=== PATIENT | male | born 1950 | race Caucasian/White ===

== ENCOUNTER 2017-04-15 18:08 | Emergency (ER) | payer OTHER ==
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
--- NOTE | ~2017-04-15 | CR126 ---
[facility]. [facility] A Service of [facility] RADIOLOGY TEXT RESULTS PATIENT: SARAH ZAACRIAS JR LOCATION: SED : 50 UNIT #: [id number] AGE: [address]: MYRA LEON SEX: M ORDER DR: [id number] [address] [address] [id number] E MR#: [id number] Acc #: [id number] NAME: SARAH ZACARIAS : 1950 SEX: M STUDY DATE/TIME: 04/15/2017 19:20 UNIT: SED ROOM: STUDY DESCRIPTION: CR Foot Complete Min 3 View Lt Attending Physician: Myra Leon Ordering Physician: Physician Non-Staff Primary Care Physician: Ramon Riley M.D. MEDICAL IMAGING REPORT This report is preliminary unless electronic signature is present. EXAM 3 view left foot. HISTORY Fell at work and heavy object fell on his foot today. FINDINGS 3 views of the left foot demonstrates spiral fracture of the distal fifth metatarsal with about 1 cortical width of medial displacement of the distal fracture fragment. No angulation. No involvement of the articular surfaces. Mild soft tissue swelling. IMPRESSION Minimally-displaced fifth metatarsal spiral shaft fracture. Dictated by... Rosina Alvarado M.D. THIS IS AN ELECTRONICALLY VERIFIED REPORT Rosina Alvarado M.D. at 04/16/2017 2:05 PM Jak TD: 04/15/2017 21:05 JOB #: [id number] MEDICAL IMAGING REPORT Page 1 of 1
[2017-04-15] MEDS ORDERED: KLONOPIN0.5 MG PO (18:21)
[2017-04-15] MEDS ORDERED: NORCO 7.5-3251 EACH PO (18:21)
[2017-04-15] MEDS ORDERED: SERTRALINE HCL100 MG PO (18:22)
[2017-04-15] MEDS ORDERED: SIMVASTATIN40 MG PO (18:23)
== END 2017-04-15 20:56 | disposition home or self-care (01) ==
LOC: SED 18:08
DX: S92.352A Displaced fracture of fifth metatarsal bone, left foot, initial encounter for closed fracture (principal); S50.02XA Contusion of left elbow, initial encounter; S80.212A Abrasion, left knee, initial encounter; F17.210 Nicotine dependence, cigarettes, uncomplicated; I10 Essential (primary) hypertension; Z86.79 Personal history of other diseases of the circulatory system; Z88.8 Allergy status to other drugs, medicaments and biological substances; W18.30XA Fall on same level, unspecified, initial encounter; Y93.89 Activity, other specified; Y92.69 Other specified industrial and construction area as the place of occurrence of the external cause; Y99.0 Civilian activity done for income or pay
CPT/HCPCS: 29515; 73080; 73630; 96372; 99284; J1885